=== PATIENT | female | born 1965 | race Caucasian/White ===

== ENCOUNTER → 2021-01-22 | Outpatient (CLI) | payer BC, OTHER ==
[2021-01-22 10:28] LABS: BASO % 0 % (0-3); EOS # 0.1 x10^3/uL (0.0-0.7); EOS % 2 % (0-3); HEMATOCRIT 42.3 % (36.0-47.0); HEMOGLOBIN 13.6 g/dL (12.0-15.5); LYMPH # 1.3 x10^3/uL (1.0-4.8); LYMPH % 29 % (24-48); MEAN CORPUSCULAR HEMOGLOBIN 28 pg (25-35); MEAN CORPUSCULAR HGB CONC 32 g/dL (31-37); MEAN CORPUSCULAR VOLUME 86 fL (79-100); MONO # 0.5 x10^3/uL (0.0-1.1); MONO % 11 % (0-9); NEUT # 2.7 x10^3/uL (1.8-7.7); NEUT % 59 % (31-73); PLATELET COUNT 235 x10^3/uL (140-400); RED BLOOD COUNT 4.91 x10^6/uL (3.50-5.40); RED CELL DISTRIBUTION WIDTH 17.4 % (11.5-14.5); WHITE BLOOD COUNT 4.6 x10^3/uL (4.0-11.0)
[2021-01-22 10:43] LABS: CALCIUM 8.4 mg/dL (8.5-10.1); POTASSIUM 3.5 mmol/L (3.5-5.1)
[2021-01-22 10:50] LABS: ALBUMIN 3.4 g/dL (3.4-5.0); ALBUMIN/GLOBULIN RATIO 0.9 (1.0-1.7); TOTAL BILIRUBIN 0.4 mg/dL (0.2-1.0)
[2021-01-23 13:31] LABS: IMMUNOGLOBULIN A 160 mg/dL (87-352); IMMUNOGLOBULIN G 996 mg/dL (586-1602); IMMUNOGLOBULIN M 233 mg/dL (26-217)
[2021-01-23 16:10] LABS: KAPPA FREE 21.3 mg/L (3.3-19.4); KAPPA LAMBDA RATIO 1.54 (0.26-1.65); LAMBDA FREE 13.8 mg/L (5.7-26.3)
[2021-01-23 21:11] LABS: ALBUM 3.5 g/dL (2.9-4.4); ALPHA 1 0.3 g/dL (0.0-0.4); ALPHA 2 0.8 g/dL (0.4-1.0); BETA 1.2 g/dL (0.7-1.3); GAMMA 1.2 g/dL (0.4-1.8)
== END ==
LOC: ONCLAB 09:35
PROVIDERS: ATTEND Internal Medicine Hematology & Oncology
DX: C92.41 Acute promyelocytic leukemia, in remission (principal)
CPT/HCPCS: 36415; 80053; 82784; 83520; 84165; 85025; 86334